=== PATIENT | female | born 1975 | race American Indian/Alaskan Native ===

== ENCOUNTER 2020-01-28 13:52 | Outpatient (CLI) | payer OTHER ==
--- NOTE | 2020-01-28 16:09 | Mammography Report ---
PERCUTANEOUS STEREOTACTIC-GUIDED LEFT BREAST BIOPSY WITH MARKER PLACEMENT HISTORY: Left breast calcifications. CONSENT: Technique, risks and alternatives were discussed with the patient and informed written conse nt obtained. PROCEDURE: The patient was placed in the prone position on the Siemens biopsy table. The calcifications in in th e left upper outer breast were targeted mammographically. Oil Scout and stereo pair images were acquired to generate the computer-derived coordinates for targeting. The skin overlying the chosen biopsy site were cleansed with Betadine. The skin and superficial soft tissues were anesthetized with a small a mount of buffered 1% lidocaine. The deeper soft tissues were anesthetized with buffered 1% lidocaine with epinephrine. A small dermatotomy was created through which the Atec biopsy device was placed. Pre and post fire st ereo pair images were acquired to confirm appropriate needle trajectory. Using vacuum assistance, mul tiple core specimen samples were acquired. A post procedure stereo pair image suggested adequate samp ling of the target. A post procedure specimen radiograph confirmed calcifications within core specime n samples. A biopsy marker was deposited at the biopsy site. Manual pressure was applied at the biopsy site to achieve hemostasis. The incision margins were appro ximated with Steri-Strips. Postprocedure care instructions were administered in both verbal and writt en forms. The patient voiced understanding and departed the [facility] in stable, satisfactory con dition. IMPRESSION Technically successful stereotactic biopsy of left upper outer breast calcifications with accurate pl acement of a biopsy marker. An addendum will be added to this report once pathology results are available. Signer Name: Sae Wnyn MD Signed: 01/28/2020 4:04 PM Workstation Name: [id number]
--- NOTE | 2020-01-28 16:12 | Mammography Report ---
LEFT DIAGNOSTIC MAMMOGRAM INDICATION: Left upper outer breast callus cases noted on outside imaging. COMPARISON: Reports from an outside facility dated 01/08/2020 and 12/11/2019. We were unable to load i mages into our PACS system for viewing. FINDINGS: We are unable to load the outside images are system for viewing. Therefore CC and MLO mammograms and left breast as well as magnification views of left upper outer breast were performed. These show a lo ose grouping of 3 calcifications in the left upper outer breast corresponding with the prior report. These were recommended for stereotactic biopsy. Stereotactic biopsy was performed and subsequent CC a nd ML mammograms demonstrate the biopsy marker at the biopsy site with no definite residual calcifica tions noted. IMPRESSION: Left breast mammographic views document the accurate location of a biopsy marker following stereotact ic left upper outer breast biopsy of calcifications. BI-RADS Category 4: Suspicious for Malignancy. Signer Name: Sae Wynn MD Signed: 01/28/2020 4:08 PM Workstation Name: [id number]
== END 2020-01-28 13:53 | disposition home or self-care (01) ==
LOC: SPVWC 13:52
PROVIDERS: ATTEND Surgery
DX: R92.1 Mammographic calcification found on diagnostic imaging of breast (principal); R92.8 Other abnormal and inconclusive findings on diagnostic imaging of breast; N64.89 Other specified disorders of breast; N60.82 Other benign mammary dysplasias of left breast; R92.0 Mammographic microcalcification found on diagnostic imaging of breast; N62 Hypertrophy of breast; N60.12 Diffuse cystic mastopathy of left breast
CPT/HCPCS: 19081; 77065; 88305; A4648